=== PATIENT | female | born 1955 | race Two or more races ===

== ENCOUNTER 2019-06-02 06:35 | Inpatient (IN) | payer OTHER ==
[~2019-06-02] VITALS: Ht 154.9 cm; Wt 58.3 kg
[2019-06-02] VITALS (7 sets, daily range): BP systolic 125–146; BP diastolic 55–71
[2019-06-02] MEDS ORDERED: BUPIVACAINE 0.5 % PF 150 MG/30 ML VIAL ONE (07:11)
[2019-06-02] MEDS ORDERED: BACITRACIN 50000 UNITS/VIAL ONE ×2 (07:12→18:34)
--- NOTE | 2019-06-02 09:00 | NUR ---
New Admission Note Patient received from ER/out patient day surgery for orif/patella, reported by Nadir CHRISTINE. AO x 4, able to response all stimuli. Skin is warm to touch, intact IV site on right wrist. Respiratory even and unlabored with room air. Keep lower position of the bed with elevated HOB. Call light within reach, will continue to monitor.
[2019-06-02] MEDS ORDERED: PROG200C15 PO (09:49)
[2019-06-02] MEDS ORDERED: THYR65TA6 PO (09:49)
[2019-06-02] MEDS ORDERED: [UNRECOGNIZED DRUG - OTHER] PO (09:49)
[2019-06-02] MEDS ORDERED: SUMA50TA17 PO (09:49)
--- NOTE | 2019-06-02 16:45 | NUR ---
Patient went to surgery accompanied by staff with ovi, vital sign: bp-146/55, p-88, t-98.3, O2-98%
[2019-06-02] MEDS ORDERED: HYDROMORPHONE INJ 2 MG/ML DISP.SYRIN ONE (16:48)
[2019-06-02] MEDS ORDERED: ANESTHESIA TRAY IN PYXIS 1 EA TRAY MC ONE (16:52)
[2019-06-02] MEDS ORDERED: VANCOMYCIN 1 GM VIAL ONE (18:34)
[2019-06-02] MEDS ORDERED: HYDROMORPHONE 1 MG/1 ML DISP.SYRIN ONE (19:42)
--- NOTE | 2019-06-02 20:30 | NUR ---
MS/TELE/RN RECEIVED PATIENT AT AROUND 1999 FROM RECOVERY ROOM, PATIENT IS S/P ORIF OF THE LEFT PATELLA WITH BONE GRAFT, LEFT LOWER EXTREMITY B WITH BRACE IN PLCE, OVER DIONNE WRAP DRESSING, LEFT HIP DRESSING INTACT NO SIGN BLEEDING NOTED, PATIENT WAS AWAKE, ALERT, ORIENTED, C/O PAIN 8/10, OFFERED PAIN MED BUT REFUSED AT THIS TIME, PLAN OF CARE DISCUSSED WITH THE PATIENT WHO VERBALIZED UNDERSTANDING AND AGREEMENT, PLACED CALL LIGHT WITHIN REACH. WILL MONITOR PER POST OP POLICY.
[2019-06-02] MEDS: IV LR 1000 ML 1,000 ML IV PRN (23:01)
[2019-06-03] MEDS: CEFAZOLIN 2 GM in IV D5W 100 ML IV SCH ×2 (01:11→13:32)
[2019-06-03] MEDS: HYDROCODONE/APAP 5/325MG 1 EACH TABLET PO PRN ×5 (03:26→22:41)
--- NOTE | 2019-06-03 04:43 | NUR ---
MS/TELE/RN PATIENT C/O NOT ABLE TO VOID, BLADDER SCAN 250 MLS, PER PATIENT SHE WAS NOT COMFORTABLE, OBTAINED ORDER TO DO STRAIGHT CATH. STRAIGHT CATH WAS DONE, 400 CLEAR, GABRIELA COLOR URINE WAS TAKEN OUT. PATIENT VERBALIZED RELIEF.
--- NOTE | 2019-06-03 06:19 | NUR ---
MS/TELE/RN PATIENT IS SLEEPING, AROUSABLE, APPEAR COMFORTABLE, NO SIGNS OF DISTRESS NOTED, CALL LIGHT IN REACH, ALL NEEDS ATTENDED AT THIS TIME, WILL CONTINUE TO MONITOR.
[2019-06-03 08:00] VITALS: BP 103/57
--- NOTE | 2019-06-03 08:41 | NUR ---
MS/RN OPENING RECEIVED PATIENT LYING IN BED. PATIENT IS ALERT AND ORIENTED X4. PATIENT DENIES PAIN AT THIS TIME. NO RESPIRATORY DISTRESS NOTED. BED IN LOWEST POSITION AND LOCKED. SIDE RAILS UP X2. CALL LIGHT WITHIN REACH. WILL CONTINUE TO MONITOR.
[2019-06-03] MEDS: IV LR 1000 ML 1,000 ML IV PRN (15:16)
[2019-06-03 16:00] VITALS: BP 131/66
[2019-06-03] MEDS: ASPIRIN 325 MG TABLET PO SCH (17:46)
[2019-06-03] MEDS ORDERED: Medication Not On Formulary EA (Progesterone,Micronized (Prometrium) 200 MG) PO SCH (18:00)
--- NOTE | 2019-06-03 19:12 | NUR ---
MS/RN NOTES AWAKE & RESPONSIVE. NOT IN ANY DISTRESS. NO SOB NOTED. DENIES ANY PAIN OR DISCOMFORT AT THIS TIME. WITH IVF INFUSING WELL. AM CARE DONE. MONITORED ACCORDINGLY. CALL LIGHT WITHIN REACH. BED IN LOWEST POSITION. SR UP X 2 FOR SAFETY. WILL ENDORSE TO NEXT SHIFT.
[2019-06-03 19:30] VITALS: BP 115/69
--- NOTE | 2019-06-03 19:32 | NUR ---
MS RN NOTES PATIENT IN BED, AWAKE. VISITOR AT BEDSIDE. ALERT AND ORIENTED X 4. BREATHING EVEN AND UNLABORED ON ROOM AIR. SHOWS NO SIGNS OF ACUTE RESPIRATORY DISTRESS, NO ACUTE PAIN. IV ON RAC #20G. SHOWS NO SIGNS OF INFILTRATION, NO REDNESS. CLEAN DRY AND INTACT. SAFETY PRECAUTIONS IN PLACE. BED IN LOWEST POSITION, LOCKED, AND CALL LIGHT KEPT WITHIN REACH. WILL CONTINUE TO MONITOR.
[2019-06-03] MEDS: MAGNESIUM HYDROXIDE 30 ML UDC PO PRN (20:57)
[2019-06-03 21:29] VITALS: BP 115/69
--- NOTE | 2019-06-03 22:41 | NUR ---
MS RN NOTES PATIENT COMPLAINING OF PAIN ON SURGICAL SITE. GIVEN NORCO AT 2241. WILL CONTINUE TO MONITOR.
[2019-06-04] MEDS: IV LR 1000 ML 1,000 ML IV PRN (06:41)
--- NOTE | 2019-06-04 06:43 | NUR ---
MS RN NOTES PATIENT IN BED, ASLEEP. ALERT AND ORIENTED X 4. BREATHING EVEN AND UNLABORED ON ROOM AIR. SHOWS NO SIGNS OF ACUTE RESPIRATORY DISTRESS, NO ACUTE PAIN. IV ON RAC #20G RUNNING LR AT 75ML/HR . SHOWS NO SIGNS OF INFILTRATION, NO REDNESS. CLEAN DRY AND INTACT. ALL DUE MEDICATIONS GIVEN. SAFETY PRECAUTIONS IN PLACE. BED IN LOWEST POSITION, LOCKED, AND CALL LIGHT KEPT WITHIN REACH. WILL ENDORSE TO ONCOMING NURSE.
[2019-06-04] MEDS: HYDROCODONE/APAP 5/325MG 1 EACH TABLET PO PRN ×2 (07:15→15:12)
--- NOTE | 2019-06-04 07:46 | NUR ---
RN OPENING NOTE PT WAS RECEIVED IN BED AT LOWEST AND LOCKED POSITION WITH SIDE RAILS UP X2, A/O X4 BREATHING EVEN AND UNLABORED WITH NO S/S OF ANY DISTRESS OR PAIN NOTED AT THIS TIME, IV IS PATENT AND INTACT, INFORMED THAT MD IS TO ONLY CHANGE DRESSING, D/C PLANNING, SAFETY PRECAUTIONS IN PLACE, CALL LIGHT IN REACH, WILL MONITOR ACCORDINGLY
[2019-06-04 08:00] VITALS: BP 124/87
[2019-06-04] MEDS: DOCUSATE SODIUM 250 MG CAPSULE PO SCH (08:19)
[2019-06-04] MEDS: NATURE THYROID 65 MG PO SCH (08:19)
[2019-06-04] MEDS: ASPIRIN 325 MG TABLET PO SCH ×2 (08:19→16:05)
[2019-06-04 16:00] VITALS: BP 125/76
--- NOTE | 2019-06-04 18:20 | NUR ---
RN CLOSING NOTE PT IN BED AT LOWEST AND LOCKED POSITION WITH SIDE RAILS UP X2, A/O X4 BREATHING EVEN AND UNLABORED WITH NO DISTRESS OR PAIN AT THIS TIME, IV IS PATENT AND INTACT, SAFETY PRECAUTIONS IN PLACE, CALL LIGHT IN REACH, ALL NEEDS ATTENDED TO, WILL ENDORSE TO NIGHT RN FOR JUANA.
--- NOTE | 2019-06-04 19:56 | NUR ---
MS RN OPENING NOTES PATIENT RECEIVED RESTING IN BED A/O X 4. STABLE ON RA WITH BREATHING EVEN AND UNLABORED, NO SOB NOTED. NO SIGNS OF ACUTE DISTRESS. NO CURRENT COMPLAINTS OF PAIN OR DISCOMFORT. IV LOCATED ON R AC #20- PATIENT DRINKING WATER SO CURRENTLY DISCONNECTED. SAFETY PRECAUTIONS IN PLACE WITH BED IN LOWEST POSITION, BREAKS ON, CALL LIGHT WITHIN REACH. WILL CONTINUE TO MONITOR.
[2019-06-04 20:00] VITALS: BP 116/52
[2019-06-04 20:44] VITALS: BP 116/52
[2019-06-05] MEDS: HYDROCODONE/APAP 5/325MG 1 EACH TABLET PO PRN ×3 (03:24→17:03)
--- NOTE | 2019-06-05 03:30 | NUR ---
MS NOTES PRN NORCO GIVEN PER PATIENT REQUEST FOR PAIN. WILL CONTINUE TO MONITOR
--- NOTE | 2019-06-05 06:29 | NUR ---
MS RN CLOSING NOTES PATIENT CURRENTLY RESTING IN BED A/O X 4. STABLE ON RA NO SOB NOTED. NO SIGNS OF ACUTE DISTRESS. NO CURRENT COMPLAINTS OF PAIN OR DISCOMFORT. LEG WAS KEPT ELEVATED THROUGHOUT THE NIGHT. IV LOCATED ON R AC #20- WASNT CONNECTED TO FLUIDS BECAUSE OF PATIENTS INCREASED ORAL INTAKE. SAFETY PRECAUTIONS IN PLACE WITH BED IN LOWEST POSITION, BREAKS ON, CALL LIGHT WITHIN REACH, AND SIDR RAILS UP X2. WILL ENDORSE TO ONCOMING SHIFT ABOUT JUANA. .
[2019-06-05 08:00] VITALS: BP 123/80
[2019-06-05] MEDS: DOCUSATE SODIUM 250 MG CAPSULE PO SCH (08:06)
[2019-06-05] MEDS: ASPIRIN 325 MG TABLET PO SCH ×2 (08:06→16:00)
[2019-06-05] MEDS: NATURE THYROID 65 MG PO SCH (08:06)
[2019-06-05] MEDS: MAGNESIUM HYDROXIDE 30 ML UDC PO PRN ×2 (09:46→16:01)
--- NOTE | 2019-06-05 11:10 | NUR ---
RN NOTE AURIST INFORMED THAT PT WISHES TO BE DISCHARGED EITHER TOMORROW OR FRIDAY AND THAT SHE WOULD LIKE TO SPEAK TO THEM. CM SAID SHE WILL COME UP AND TALK TO THE PATIENT SOON SHE IS AVAILABLE AND ABLE TO
[2019-06-05 16:00] VITALS: BP 126/75
--- NOTE | 2019-06-05 17:59 | NUR ---
RN NOTE REPORT GIVEN TO JA AT [facility] AT THIS TIME
--- NOTE | 2019-06-05 18:39 | NUR ---
RN CLOSING NOTE PT IN BED AT LOWEST AND LOCKED POSITION WITH SIDE RAILS UP X2, A/O X4 BREATHING EVEN AND UNLABORED WITH NO DISTRESS OR PAIN AT THIS TIME, IV IS PATENT AND INTACT, SAFETY PRECAUTIONS IN PLACE, CALL LIGHT IN REACH, ALL NEEDS ATTENDED TO, D/C PLANNING FOR TONIGHT 7PM, WILL ENDORSE TO NIGHT RN FOR JUANA.
--- NOTE | 2019-06-05 19:20 | NUR ---
MS/RN OPENING NOTES: RECEIVED PATIENT IN BED AT LOWEST AND LOCKED POSITION WITH SIDE RAILS UP X2, A/O X4 BREATHING EVEN AND UNLABORED WITH NO S/S OF ANY DISTRESS OR PAIN NOTED AT THIS TIME, REMOVED IV LINE FOR DISCHARGE, INFORMED THAT MD IS TO ONLY CHANGE DRESSING, AWAITING FOR DISCHARGE. REPORT GIVEN BY SOLIS TO RECEIVING NURSE, JA FROM [place]. SANDIE CALLED ON BEHALF OF TRANSPORTATION AMBULANCE ABOUT BEING LATE FOR 20 MINUTES. SAFETY PRECAUTIONS IN PLACE, CALL LIGHT IN REACH, WILL MONITOR ACCORDINGLY.
--- NOTE | 2019-06-05 21:15 | NUR ---
MS/LABORATORY MONITOR NOTES: [employer] center director lead teacher ARRIVED AT 2014, GAVE REPORT TO CHENTE. PATIENT TRANSFERRED VIA GURNEY IN STABLE CONDITION. VITAL SIGNS WNL. BP:130/73. WV:72. O2 SAT: 97%, RR:18 TEMP: 98.6 PATIENT REMAINS A/O X4, BREATHING EVEN AND UNLABORED WITH NO S/S OF ANY DISTRESS OR PAIN NOTED AT THIS TIME, NO IV LINE PRESENT, GIVEN DISCHARGE INFORMATION TO THE PATIENT. AWARE OF PLAN OF CARE. NO COMPLAINS OF PAIN OR DISCOMFORT AT THIS TIME. PATIENT HAS ALL BELONGINGS. WITH FRIEND AT BED SIDE. PATIENT LEFT AT 2024 IN STABLE CONDITION.
== END 2019-06-05 20:25 | DRG 489 ==
LOC: DS 06:35 → MED 09:19
PROVIDERS: ADMIT Internal Medicine; ATTEND Internal Medicine
DX: S82.002K Unspecified fracture of left patella, subsequent encounter for closed fracture with nonunion (principal); Y92.89 Other specified places as the place of occurrence of the external cause; E03.9 Hypothyroidism, unspecified; G43.909 Migraine, unspecified, not intractable, without status migrainosus; W18.30XD Fall on same level, unspecified, subsequent encounter
CPT/HCPCS: 73560-TC; 87081-TC; 88305-TC; 88311-TC; 97110-TC; 97116-TC; 97530-TC; C1713; G0378; J0690; J1100; J1170; J1885; J2405; J2704; J3370; J3490; J7060; J7120